=== PATIENT | female | born 1970 | race Caucasian/White ===

== ENCOUNTER → 2018-12-07 | Outpatient (REF) | payer BC ==
[2018-12-07 18:14] LABS: CHLAMYDIA DNA AMPLIFICATION NEGATIVE (NEGATIVE); GC DNA AMPLIFICATION NEGATIVE (NEGATIVE)
== END ==
LOC: M SFHCPLAZ 16:09
PROVIDERS: ATTEND Family Medicine
DX: Z11.3 Encounter for screening for infections with a predominantly sexual mode of transmission (principal)

== ENCOUNTER → 2019-01-18 | Outpatient (CLI) | payer BC ==
--- NOTE | 2019-01-19 08:45 | REP ---
Clinical: Nontraumatic right hip pain. Technique: Frontal view of the pelvis with neutral and frog lateral views of the right hip. Findings: Osseous structures and joint spaces are intact and normal. Hip joints appear symmetric on frontal pelvic radiograph. No acute fracture dislocation. No evidence for healed injury. No significant degenerative or congenital abnormalities are appreciated. Surrounding soft tissues are unremarkable. Impression: Normal pelvis and right hip series. Electronically Signed by Abisai Choudhury MD 01/19/2019 08:37 A
== END ==
LOC: M WUC 11:19
PROVIDERS: ATTEND Family Medicine
DX: M25.551 Pain in right hip (principal)

== ENCOUNTER → 2019-01-28 | Outpatient (CLI) | payer BC ==
--- NOTE | 2019-01-28 11:00 | REP ---
MRI RIGHT HIP WITHOUT CONTRAST: HISTORY: Right hip pain. COMPARISON RADIOGRAPHS: January 18, 2019 TECHNIQUE: Axial, coronal, and sagittal imaging planes are utilized. T1- and T2-weighted scans were included with and without fat saturation. Coronal images include bilateral hips. FINDINGS: Cortical and medullary bone signal intensity are normal in the femoral heads bilaterally. There is no evidence to suggest avascular necrosis or stress fracture. There is, however, a moderate amount of peritrochanteric myofascial edema adjacent to the greater trochanters bilaterally consistent with peritrochanteric tendonitis and/or bursitis. There is no evidence of significant hip joint effusion. There is minimal superior acetabular spurring bilaterally. No sidney labral cartilage disruption. There is a tiny 3 mm subcortical cyst in the superior acetabulum on the right. There is a 7 mm subcortical cyst anteriorly in the head/neck junction region of the proximal femur on the right. The ligamentum teres appear intact bilaterally. No intrapelvic mass or adenopathy is seen. IMPRESSION: Prominent peritrochanteric soft tissue edema pattern consistent with tendonitis and/or bursitis. Mild osteoarthritic changes in the right and left hip. Otherwise negative. Electronically Signed by Pernell Silver MD 01/28/2019 05:00 P
== END ==
LOC: M RAD 09:15
PROVIDERS: ATTEND Family Medicine
DX: M16.0 Bilateral primary osteoarthritis of hip (principal); M79.9 Soft tissue disorder, unspecified

== ENCOUNTER → 2019-04-14 | Outpatient (REF) | payer BC ==
[2019-04-14 13:01] LABS: BASO % 0.2 % (0.0-1.0); EOS % 0.2 % (0.0-3.0); HEMATOCRIT 43.8 % (36.0-47.0); LYMPH # 1.9 10^3/uL (1.5-5.0); LYMPH % 34.3 % (24.0-44.0); MEAN CORPUSCULAR HEMOGLOBIN 30.4 pg (27.0-33.0); MONO # 0.4 10^3/uL (0.0-0.8); MONO % 7.9 % (0.0-5.0); NEUTROPHILS # 3.1 10^3/uL (1.5-8.5); PLATELET COUNT, AUTOMATED 245 10^3/uL (150-450); RED BLOOD COUNT 4.61 10^6/uL (4.00-5.40); WHITE BLOOD COUNT 5.4 10^3/uL (4.0-10.0)
[2019-04-14 13:07] LABS: C REACTIVE PROTEIN QUANTITATIV < 0.30 MG/DL (0.00-0.30); RHEUMATOID FACTOR QUANT < 10.0 IU/ML (<15.0)
[2019-04-14 13:23] LABS: ERYTHROCYTE SEDIMENTATION RATE 6 mm/hr (0-20)
[2019-04-16 00:10] LABS: ANTINUCLEAR ANTIBODIES DIRECT Negative (Negative); Lyme Disease IgG/IgM Antibodie <0.91 ISR (0.00-0.90); Lyme Disease IgM Ab Quantitati <0.80 index (0.00-0.79)
== END ==
LOC: M LABDRAW1 12:47
PROVIDERS: ATTEND Orthopaedic Surgery
DX: M54.5 Low back pain (principal)

== ENCOUNTER → 2019-04-25 | Outpatient (CLI) | payer BC ==
--- NOTE | 2019-04-25 14:22 | REPPI ---
Clinical: Shortness of breath . Comparison: None . Technique: PA and lateral. Findings: The mediastinum and cardiac silhouette are normal. The lung marte are clear and without acute consolidation, effusion, or pneumothorax. The skeletal structures are intact and normal. Impression: 1. No acute cardiopulmonary process. Electronically Signed by Abisai Choudhury MD 04/25/2019 02:14 P
== END ==
LOC: M PLAIMG 13:56
PROVIDERS: ATTEND Family Medicine
DX: J11.1 Influenza due to unidentified influenza virus with other respiratory manifestations (principal); R06.02 Shortness of breath